=== PATIENT | female | born 1990 | race African-American/Black ===

== ENCOUNTER 2023-02-08 14:16 | Outpatient (REF) | payer OTHER, SELFPAY ==
[2023-02-08 18:11] LABS: Hematocrit 36.4 % (37.0-47.0); Hemoglobin 11.8 g/dl (12.0-16.0); Mean Corpuscular HGB Conc 32.4 g/dl (31.0-35.0); Mean Corpuscular Hemoglobin 23.5 pg (27.0-33.0); Mean Corpuscular Volume 72.5 fL (80.0-98.0); Mean Platelet Volume 9.7 fL (9.4-12.3); Platelet Count 310 X10*3/uL (160-400); Red Blood Count 5.02 X10*6/uL (4.20-5.50); Red Cell Distribution Width 16.1 % (11.0-16.0); White Blood Count 5.9 X10*3/uL (4.8-10.8)
[2023-02-08 18:36] LABS: SLIDE REVIEW MANUAL DIFF
[2023-02-08 18:43] LABS: TSH reflex Free T4 0.13 uIU/mL (0.32-4.0)
[2023-02-08 18:44] LABS: Atypical Lymph Absolute Manual 0.3 x10*3/uL; Atypical Lymphs Percent Manual 5 % (0-6); Eosinophils Absolute Manual 0.1 X10*3/uL (0.0-0.4); Eosinophils Percent Manual 1 % (0-4); Lymphocytes Percent Manual 34 % (20-40); Monocytes Absolute Manual 0.5 X10*3/uL (0.1-1.2); Monocytes Percent Manual 9 % (2-11); Neutrophils Percent Manual 51 % (45-73)
[2023-02-08 18:46] LABS: Burr Cells 2+ (3-5) /OIF; RBC Morphology NOTED
[2023-02-08 18:47] LABS: Platelet Estimate NORMAL (NORMAL)
[2023-02-08 18:48] LABS: Band Neutrophils Percent 0 % (3-5); Platelet Morphology Comment NORM
[2023-02-08 19:13] LABS: Free T4 (Free Thyroxine) 0.97 ng/dL (0.71-1.85)
[2023-02-09 08:13] LABS: ~HepC Num1 0.15 S/CO (0.00-0.79); ~Hepatitis C Antibody Nonreactive (Nonreactive)
[2023-02-09 08:14] LABS: Hepatitis B Core Antibody Nonreactive (Nonreactive)
[2023-02-11 07:44] LABS: TS Negative Control Passed; TS Panel A 0; TS Panel B 0; TS Positive Control Passed; TSpotTB Negative (Negative)
== END 2023-02-08 14:17 | disposition home or self-care (01) ==
LOC: HO.CHCLDS 14:16
PROVIDERS: Visit Provider Internal Medicine
DX: Z00.00 Encounter for general adult medical examination without abnormal findings (principal); Z11.1 Encounter for screening for respiratory tuberculosis
CPT/HCPCS: 36415; 84439; 84443; 85007; 85027; 86481; 86704; 86803

== ENCOUNTER 2023-02-26 09:32 | Outpatient (REF) | payer OTHER, SELFPAY ==
[2023-02-27 05:28] LABS: ~Hepatitis B Surface Antibody REACTIVE (Nonreactive)
[2023-02-28 07:24] LABS: Rubella IgG Antibody 1.47 Index
== END 2023-02-26 09:33 | disposition home or self-care (01) ==
LOC: HO.CHCLDS 09:32
PROVIDERS: Visit Provider Internal Medicine
DX: Z00.00 Encounter for general adult medical examination without abnormal findings (principal)
CPT/HCPCS: 36415; 86706; 86735; 86762; 86765; 86787

== ENCOUNTER 2023-03-30 14:02 | Outpatient (REF) | payer OTHER, SELFPAY ==
[2023-03-30 17:43] LABS: Alanine Aminotransferase 12 U/L (0-31); Albumin Level 4.3 g/dL (3.5-5.0); Alkaline Phosphatase 60 U/L (39-117); Aspartate Amino Transferase 16 U/L (5-31); Bilirubin Direct 0.2 mg/dL (0.0-0.5); Bilirubin Total 0.4 mg/dL (0.0-1.0); Total Protein 7.2 g/dL (6.5-8.0)
[2023-03-31 08:19] LABS: Triiodothyronine T3 Free 3.1 pg/mL (2.3-4.2); Triiodothyronine T3 Total 107 ng/dL (76-181)
[2023-04-02 03:49] LABS: HBc Num1 0.11 S/CO (0.00-0.79); HBsAGNum1 0.41 S/CO (0.00-0.99); Hepatitis A Antibody IgM 0.21 Index (0-0.79); Hepatitis B Core Antibody Nonreactive (Nonreactive); Hepatitis B Surface Antigen Negative (Negative); ~HepC Num1 0.12 S/CO (0.00-0.79); ~Hepatitis A Antibody IgM Nonreactive (Nonreactive); ~Hepatitis B Surface Antibody REACTIVE (Nonreactive); ~Hepatitis C Antibody Nonreactive (Nonreactive)
== END 2023-03-30 14:03 | disposition home or self-care (01) ==
LOC: HO.CHCLDS 14:02
PROVIDERS: Visit Provider Internal Medicine
DX: Z00.00 Encounter for general adult medical examination without abnormal findings (principal); R94.6 Abnormal results of thyroid function studies
CPT/HCPCS: 36415; 80076; 84443; 84480; 84481; 86704; 86706; 86709; 86803; 87340